=== PATIENT | female | born 1940 | race Caucasian/White ===

== ENCOUNTER 2022-03-13 14:16 | Inpatient (IN) ==
[2022-03-13 16:45] LABS: Basophils # 0.1 10*3/uL (0.0-0.2); Basophils % 0.8 % (0.0-0.8); Eosinophils # 0.2 10*3/uL (0.0-0.87); Eosinophils % 1.4 % (0.00-10.9); Hematocrit 41.6 VOL% (35.7-47.0); Hemoglobin 13.4 GM/DL (12.0-16.0); Immature Granulocytes % 0.5 %; Immature Granulocytes Absolute 0.06 #; Lymphocytes # 1.8 10*3/uL (1.4-4.0); Lymphocytes % 15.2 % (21.3-54.2); Mean Corpuscular HGB Conc 32.2 GM/DL (32-36); Mean Corpuscular Volume 92.7 FL (87-102); Monocytes # 1.1 10*3/uL (0.11-0.8); Monocytes % 9.2 % (1.7-12.7); Neutrophils % 72.9 % (38.7-73.9); Platelet Count 290 T/CUMM (130-400); Red Blood Count 4.49 MC/CUMM (3.8-5.5); Red Cell Distribution Width 14.6 % (9.3-17.3); White Blood Count 11.6 T/CUMM (4-12)
[2022-03-13 16:54] LABS: PT Patient Result 10.6 SECS (10.1-12.1)
[2022-03-13 17:02] LABS: Albumin 3.5 G/DL (3.4-5.0); Bilirubin,Total 1.6 MG/DL (0.20-1.00); Calcium 9.5 MG/DL (8.5-10.1); Osmolality,Calculated 291.8 MOS/KG (273-304); Potassium 3.4 MMOL/L (3.5-5.1)
[2022-03-13] MEDS ORDERED: DOCUSATE SODIUM 100 MG CAPSULE PO PRN (17:21)
[2022-03-13] MEDS ORDERED: ACETAMINOPHEN 325 MG TABLET PO PRN (17:21)
[2022-03-13] MEDS ORDERED: GLUCAGON 1 MG VIAL IM PRN (17:21)
[2022-03-13] MEDS ORDERED: ONDANSETRON 4 MG/2 ML VIAL IV PRN (17:21)
[2022-03-13] MEDS ORDERED: ALBUTEROL 2.5 MG/3 ML NEB RESP TX PRN (17:21)
[2022-03-13] MEDS ORDERED: MORPHINE 2 MG/1 ML SYRINGE IV PRN (17:21)
[2022-03-13] MEDS ORDERED: hydrALAZINE 20 MG/1 ML VIAL IV PRN (17:21)
[2022-03-13] MEDS ORDERED: DEXTROSE 10% 250 ML BAG IV PRN (17:30)
[2022-03-13 17:59] LABS: Hyaline Casts,Urine 1 /LPF (0-3); Mucus,Urine Occasional /LPF (Occasional); RBC,Urine 1 /HPF (0-4)
[2022-03-13 18:02] LABS: Bilirubin,Urine Negative (Negative); Blood, Urine Negative (Negative); Glucose,Urine (UA) Negative (Negative); Ketones,Urine Negative (Negative); Nitrite,Urine Negative (Negative); Protein,Urine Negative (Negative); Urine Appearance Clear (Clear); Urine Color Yellow (Yellow); Urine Urobilinogen 0.2 eU/dL (<2.0); Urine pH 5.5 (4.5-8.0)
[2022-03-13] MEDS: OLANZapine 5 MG TABLET PO SCH (18:26)
[2022-03-13] MEDS ORDERED: CITALOPRAM 20 MG TABLET PO SCH (19:00)
[2022-03-13] MEDS ORDERED: POTASSIUM CHLORIDE INJ 20 MEQ in LACTATED RINGERS 1,000 ML IV SCH (20:00)
[2022-03-13] MEDS: CITALOPRAM 20 MG TABLET PO SCH ×2 (20:01→20:42)
[2022-03-14 05:07] LABS: Basophils # 0.1 10*3/uL (0.0-0.2); Basophils % 1.2 % (0.0-0.8); Eosinophils # 0.4 10*3/uL (0.0-0.87); Eosinophils % 4.4 % (0.00-10.9); Hematocrit 35.1 VOL% (35.7-47.0); Hemoglobin 12.2 GM/DL (12.0-16.0); Immature Granulocytes % 0.6 %; Immature Granulocytes Absolute 0.05 #; Lymphocytes # 2.3 10*3/uL (1.4-4.0); Lymphocytes % 26.2 % (21.3-54.2); Mean Corpuscular HGB Conc 34.8 GM/DL (32-36); Mean Corpuscular Volume 93.1 FL (87-102); Mean Platelet Volume 10.2 FL (9.6-12.0); Monocytes # 0.9 10*3/uL (0.11-0.8); Monocytes % 10.3 % (1.7-12.7); Neutrophils % 57.3 % (38.7-73.9); Platelet Count 282 T/CUMM (130-400); Red Blood Count 3.77 MC/CUMM (3.8-5.5); Red Cell Distribution Width 14.8 % (9.3-17.3); White Blood Count 8.7 T/CUMM (4-12)
[2022-03-14 05:43] LABS: Calcium 9.5 MG/DL (8.5-10.1); Osmolality,Calculated 296.4 MOS/KG (273-304); Potassium 3.1 MMOL/L (3.5-5.1); Risk Ratio 3.18; Thyroid Stimulating Hormone 3.8 uIU/ml (0.358-3.74); VLDL Cholesterol 22.8 MG/DL
[2022-03-14] MEDS: POTASSIUM BICARB EFFERVESCENT 20 MEQ TAB.EFF PER TUBE PRN ×2 (06:15→08:48)
[2022-03-14] MEDS ORDERED: POTASSIUM CHLORIDE 20 MEQ TABLET PO ONE (08:18)
[2022-03-14] MEDS: buPROPion SR 100 MG TABLET PO SCH (08:48)
[2022-03-14] MEDS: DICYCLOMINE 20 MG TABLET PO SCH ×3 (08:48→16:50)
[2022-03-14] MEDS: PANTOPRAZOLE 40 MG TABLET PO SCH (08:48)
[2022-03-14] MEDS: NON-FORMULARY MEDICATION (Mirabegron [Myrbetriq] 25 mg Tablet Extended Release 24 Hr) PO SCH (08:51)
[2022-03-14] MEDS ORDERED: FUROSEMIDE 40 MG/4 ML VIAL IV ONE (09:58)
[2022-03-14] MEDS: POTASSIUM CHLORIDE INJ 40 MEQ in SODIUM CHLORIDE 0.45% 1,000 ML IV SCH (11:24)
[2022-03-14] MEDS: CHOLECALCIFEROL 5,000 UNIT TABLET PO SCH (11:24)
[2022-03-14] MEDS: POTASSIUM CHLORIDE 20 MEQ TABLET PO SCH (11:24)
[2022-03-14] MEDS: amLODIPine 5 MG TABLET PO SCH (11:25)
[2022-03-14] MEDS: ALBUTEROL 2.5 MG/3 ML NEB RESP TX SCH ×2 (13:59→19:58)
[2022-03-14] MEDS: OLANZapine 5 MG TABLET PO SCH (16:52)
[2022-03-14] MEDS: CITALOPRAM 20 MG TABLET PO SCH (20:08)
[2022-03-14] MEDS: MEMANTINE 5 MG TABLET PO SCH (20:08)
[2022-03-15] MEDS: ALBUTEROL 2.5 MG/3 ML NEB RESP TX SCH ×4 (00:15→15:12)
[2022-03-15] MEDS: POTASSIUM CHLORIDE INJ 40 MEQ in SODIUM CHLORIDE 0.45% 1,000 ML IV SCH (01:53)
[2022-03-15 05:29] LABS: Basophils # 0.1 10*3/uL (0.0-0.2); Basophils % 0.8 % (0.0-0.8); Eosinophils # 0.2 10*3/uL (0.0-0.87); Eosinophils % 1.8 % (0.00-10.9); Hemoglobin 12.5 GM/DL (12.0-16.0); Immature Granulocytes % 0.6 %; Immature Granulocytes Absolute 0.07 #; Lymphocytes # 2.6 10*3/uL (1.4-4.0); Lymphocytes % 22.8 % (21.3-54.2); Mean Corpuscular HGB Conc 32.1 GM/DL (32-36); Mean Corpuscular Volume 93.8 FL (87-102); Mean Platelet Volume 10.1 FL (9.6-12.0); Monocytes % 8.8 % (1.7-12.7); Neutrophils % 65.2 % (38.7-73.9); Platelet Count 299 T/CUMM (130-400); Red Blood Count 4.16 MC/CUMM (3.8-5.5); Red Cell Distribution Width 14.6 % (9.3-17.3); White Blood Count 11.5 T/CUMM (4-12)
[2022-03-15 05:58] LABS: Calcium 9.5 MG/DL (8.5-10.1); Osmolality,Calculated 286.1 MOS/KG (273-304); Potassium 4.6 MMOL/L (3.5-5.1)
[2022-03-15] MEDS ORDERED: SODIUM CHLORIDE 0.9% 1,000 ML IV SCH (07:30)
[2022-03-15] MEDS: PANTOPRAZOLE 40 MG TABLET PO SCH (09:16)
[2022-03-15] MEDS: MEMANTINE 5 MG TABLET PO SCH ×2 (09:16→20:11)
[2022-03-15] MEDS: DICYCLOMINE 20 MG TABLET PO SCH ×3 (09:16→18:03)
[2022-03-15] MEDS: buPROPion SR 100 MG TABLET PO SCH (09:16)
[2022-03-15] MEDS: NON-FORMULARY MEDICATION (Mirabegron [Myrbetriq] 25 mg Tablet Extended Release 24 Hr) PO SCH (09:24)
[2022-03-15] MEDS: amLODIPine 5 MG TABLET PO SCH (12:11)
[2022-03-15] MEDS: CHOLECALCIFEROL 5,000 UNIT TABLET PO SCH (12:11)
[2022-03-15] MEDS: SODIUM CHLORIDE 0.45% 1,000 ML IV SCH (17:15)
[2022-03-15] MEDS: OLANZapine 5 MG TABLET PO SCH (17:56)
[2022-03-15] MEDS: CITALOPRAM 20 MG TABLET PO SCH (20:11)
[2022-03-16 06:08] LABS: Basophils # 0.1 10*3/uL (0.0-0.2); Basophils % 0.7 % (0.0-0.8); Eosinophils # 0.4 10*3/uL (0.0-0.87); Eosinophils % 3.9 % (0.00-10.9); Hematocrit 41.6 VOL% (35.7-47.0); Hemoglobin 13.3 GM/DL (12.0-16.0); Immature Granulocytes % 0.6 %; Immature Granulocytes Absolute 0.05 #; Lymphocytes # 1.5 10*3/uL (1.4-4.0); Lymphocytes % 17.1 % (21.3-54.2); Mean Corpuscular Volume 93.9 FL (87-102); Mean Platelet Volume 9.8 FL (9.6-12.0); Monocytes # 0.7 10*3/uL (0.11-0.8); Monocytes % 7.5 % (1.7-12.7); Neutrophils % 70.2 % (38.7-73.9); Platelet Count 321 T/CUMM (130-400); Red Blood Count 4.43 MC/CUMM (3.8-5.5); Red Cell Distribution Width 14.3 % (9.3-17.3)
[2022-03-16 06:34] LABS: Calcium 10.1 MG/DL (8.5-10.1); Osmolality,Calculated 282.3 MOS/KG (273-304); Potassium 3.6 MMOL/L (3.5-5.1)
[2022-03-16] MEDS: NON-FORMULARY MEDICATION (Mirabegron [Myrbetriq] 25 mg Tablet Extended Release 24 Hr) PO SCH (08:38)
[2022-03-16] MEDS: PANTOPRAZOLE 40 MG TABLET PO SCH (09:28)
[2022-03-16] MEDS: buPROPion SR 100 MG TABLET PO SCH (09:28)
[2022-03-16] MEDS: MEMANTINE 5 MG TABLET PO SCH (09:28)
[2022-03-16] MEDS: SODIUM CHLORIDE 0.45% 1,000 ML IV SCH (10:15)
[2022-03-16] MEDS ORDERED: ZINC OXIDE PASTE 113 GM TUBE TOP PRN (10:45)
[2022-03-16] MEDS: HALOPERIDOL 5 MG/ML AMP IM PRN ×2 (10:45→17:17)
[2022-03-16] MEDS: ENOXAPARIN 40 MG/0.4 ML SYRINGE SUBCUT SCH (10:45)
[2022-03-16] MEDS: CHOLECALCIFEROL 5,000 UNIT TABLET PO SCH (12:27)
[2022-03-16] MEDS: POTASSIUM CHLORIDE 20 MEQ TABLET PO SCH (12:27)
[2022-03-16] MEDS: amLODIPine 5 MG TABLET PO SCH (12:50)
[2022-03-16 13:12] LABS: Bacteria,Urine Occasional /HPF (Few); Bilirubin,Urine Negative (Negative); Blood, Urine Negative (Negative); Glucose,Urine (UA) Negative (Negative); Ketones,Urine Negative (Negative); Mucus,Urine Occasional /LPF (Occasional); Nitrite,Urine Negative (Negative); Protein,Urine Negative (Negative); RBC,Urine 2 /HPF (0-4); Urine Appearance Clear (Clear); Urine Color Yellow (Yellow); Urine Specific Gravity 1.015 (1.001-1.035); Urine Urobilinogen 0.2 eU/dL (<2.0)
[2022-03-16 13:34] LABS: Barbiturates Screen,Urine Negative (Negative); Benzodiazepines Screen,Urine Negative (Negative); Cannabinoid Screen,Urine Negative (Negative); Opiate Screen,Urine Positive (Negative); Phencyclidine Screen,Urine Negative (Negative)
[2022-03-17 03:26] LABS: Basophils # 0.1 10*3/uL (0.0-0.2); Basophils % 0.9 % (0.0-0.8); Eosinophils # 0.3 10*3/uL (0.0-0.87); Eosinophils % 3.2 % (0.00-10.9); Hematocrit 40.2 VOL% (35.7-47.0); Hemoglobin 12.9 GM/DL (12.0-16.0); Immature Granulocytes % 0.5 %; Immature Granulocytes Absolute 0.05 #; Lymphocytes # 1.9 10*3/uL (1.4-4.0); Lymphocytes % 20.9 % (21.3-54.2); Mean Corpuscular HGB Conc 32.1 GM/DL (32-36); Mean Corpuscular Volume 92.4 FL (87-102); Mean Platelet Volume 9.5 FL (9.6-12.0); Monocytes # 0.9 10*3/uL (0.11-0.8); Monocytes % 10.1 % (1.7-12.7); Neutrophils % 64.4 % (38.7-73.9); Platelet Count 324 T/CUMM (130-400); Red Blood Count 4.35 MC/CUMM (3.8-5.5); Red Cell Distribution Width 14.2 % (9.3-17.3); White Blood Count 9.2 T/CUMM (4-12)
[2022-03-17 03:46] LABS: Calcium 9.2 MG/DL (8.5-10.1); Osmolality,Calculated 282.3 MOS/KG (273-304); Potassium 3.4 MMOL/L (3.5-5.1)
[2022-03-17] MEDS: PANTOPRAZOLE 40 MG TABLET PO SCH (10:56)
[2022-03-17] MEDS: NON-FORMULARY MEDICATION (Mirabegron [Myrbetriq] 25 mg Tablet Extended Release 24 Hr) PO SCH (10:56)
[2022-03-17] MEDS: ENOXAPARIN 40 MG/0.4 ML SYRINGE SUBCUT SCH (10:57)
[2022-03-17] MEDS: SODIUM CHLORIDE 0.45% 1,000 ML IV SCH ×2 (10:57→11:39)
[2022-03-17] MEDS: POTASSIUM CHLORIDE 20 MEQ TABLET PO SCH (11:40)
[2022-03-17] MEDS: POTASSIUM CHLORIDE RIDER 10 MEQ/100 ML PREMIX IV PRN ×3 (11:40→13:36)
[2022-03-17] MEDS: amLODIPine 5 MG TABLET PO SCH (11:41)
[2022-03-17] MEDS: CHOLECALCIFEROL 5,000 UNIT TABLET PO SCH (11:41)
[2022-03-18 05:43] LABS: Basophils # 0.1 10*3/uL (0.0-0.2); Basophils % 0.5 % (0.0-0.8); Eosinophils # 0.4 10*3/uL (0.0-0.87); Eosinophils % 3.5 % (0.00-10.9); Hematocrit 40.1 VOL% (35.7-47.0); Immature Granulocytes % 0.5 %; Immature Granulocytes Absolute 0.05 #; Lymphocytes # 1.9 10*3/uL (1.4-4.0); Lymphocytes % 18.5 % (21.3-54.2); Mean Corpuscular HGB Conc 32.4 GM/DL (32-36); Mean Corpuscular Volume 92.4 FL (87-102); Mean Platelet Volume 9.5 FL (9.6-12.0); Monocytes # 0.8 10*3/uL (0.11-0.8); Monocytes % 8.2 % (1.7-12.7); Neutrophils % 68.8 % (38.7-73.9); Platelet Count 352 T/CUMM (130-400); Red Blood Count 4.34 MC/CUMM (3.8-5.5); Red Cell Distribution Width 14.3 % (9.3-17.3); White Blood Count 10.1 T/CUMM (4-12)
[2022-03-18 06:02] LABS: Calcium 9.3 MG/DL (8.5-10.1); Osmolality,Calculated 277.5 MOS/KG (273-304); Potassium 3.5 MMOL/L (3.5-5.1)
[2022-03-18] MEDS: ENOXAPARIN 40 MG/0.4 ML SYRINGE SUBCUT SCH (09:18)
[2022-03-18] MEDS: PANTOPRAZOLE 40 MG TABLET PO SCH (09:18)
[2022-03-18] MEDS: NON-FORMULARY MEDICATION (Mirabegron [Myrbetriq] 25 mg Tablet Extended Release 24 Hr) PO SCH (09:20)
[2022-03-18] MEDS: amLODIPine 5 MG TABLET PO SCH (12:00)
[2022-03-18] MEDS: CHOLECALCIFEROL 5,000 UNIT TABLET PO SCH (12:01)
[2022-03-18] MEDS: POTASSIUM CHLORIDE 20 MEQ TABLET PO SCH (12:01)
[2022-03-18] MEDS: SODIUM CHLORIDE 0.45% 1,000 ML IV SCH ×2 (14:07)
[2022-03-18] MEDS ORDERED: TUBERCULIN SKIN TEST 0.1 ML SYRINGE INTRADERM ONE (15:27)
[2022-03-18] MEDS: HALOPERIDOL 5 MG/ML AMP IM PRN (18:25)
[2022-03-18] MEDS: CITALOPRAM 20 MG TABLET PO SCH ×2 (18:28→20:45)
[2022-03-19] MEDS: SODIUM CHLORIDE 0.45% 1,000 ML IV SCH (01:05)
[2022-03-19 05:14] LABS: Basophils # 0.1 10*3/uL (0.0-0.2); Basophils % 0.6 % (0.0-0.8); Eosinophils # 0.1 10*3/uL (0.0-0.87); Eosinophils % 1.1 % (0.00-10.9); Hematocrit 39.6 VOL% (35.7-47.0); Hemoglobin 12.9 GM/DL (12.0-16.0); Immature Granulocytes % 0.4 %; Immature Granulocytes Absolute 0.05 #; Lymphocytes # 1.8 10*3/uL (1.4-4.0); Lymphocytes % 15.2 % (21.3-54.2); Mean Corpuscular HGB Conc 32.6 GM/DL (32-36); Mean Corpuscular Volume 92.1 FL (87-102); Mean Platelet Volume 9.7 FL (9.6-12.0); Monocytes % 8.5 % (1.7-12.7); Neutrophils % 74.2 % (38.7-73.9); Platelet Count 384 T/CUMM (130-400); Red Cell Distribution Width 14.3 % (9.3-17.3); White Blood Count 11.7 T/CUMM (4-12)
[2022-03-19 05:31] LABS: Calcium 9.4 MG/DL (8.5-10.1); Osmolality,Calculated 277.5 MOS/KG (273-304); Potassium 3.3 MMOL/L (3.5-5.1)
[2022-03-19] MEDS: POTASSIUM CHLORIDE RIDER 10 MEQ/100 ML PREMIX IV PRN (05:34)
[2022-03-19] MEDS ORDERED: POTASSIUM CHLORIDE 20 MEQ TABLET PO ONE (07:25)
[2022-03-19] MEDS: ENOXAPARIN 40 MG/0.4 ML SYRINGE SUBCUT SCH (09:40)
[2022-03-19] MEDS: buPROPion SR 100 MG TABLET PO SCH (09:53)
[2022-03-19] MEDS: NON-FORMULARY MEDICATION (Mirabegron [Myrbetriq] 25 mg Tablet Extended Release 24 Hr) PO SCH (09:53)
[2022-03-19] MEDS: PANTOPRAZOLE 40 MG TABLET PO SCH (09:53)
[2022-03-19] MEDS: POTASSIUM CHLORIDE 20 MEQ TABLET PO SCH (11:34)
[2022-03-19] MEDS: amLODIPine 5 MG TABLET PO SCH (11:34)
[2022-03-19] MEDS: CHOLECALCIFEROL 5,000 UNIT TABLET PO SCH (11:34)
[2022-03-19] MEDS: COLCHICINE 0.6 MG CAPSULE PO SCH (13:21)
[2022-03-19] MEDS: CITALOPRAM 20 MG TABLET PO SCH (20:34)
[2022-03-20 05:50] LABS: Basophils # 0.1 10*3/uL (0.0-0.2); Basophils % 0.6 % (0.0-0.8); Eosinophils # 0.3 10*3/uL (0.0-0.87); Eosinophils % 2.8 % (0.00-10.9); Hemoglobin 12.2 GM/DL (12.0-16.0); Immature Granulocytes % 0.6 %; Immature Granulocytes Absolute 0.07 #; Lymphocytes % 18.2 % (21.3-54.2); Mean Corpuscular HGB Conc 32.1 GM/DL (32-36); Mean Corpuscular Volume 92.9 FL (87-102); Mean Platelet Volume 9.5 FL (9.6-12.0); Monocytes % 9.1 % (1.7-12.7); Neutrophils % 68.7 % (38.7-73.9); Platelet Count 373 T/CUMM (130-400); Red Blood Count 4.09 MC/CUMM (3.8-5.5); Red Cell Distribution Width 14.4 % (9.3-17.3); White Blood Count 10.9 T/CUMM (4-12)
[2022-03-20 06:25] LABS: Calcium 9.9 MG/DL (8.5-10.1); Osmolality,Calculated 278.5 MOS/KG (273-304); Potassium 3.9 MMOL/L (3.5-5.1)
[2022-03-20] MEDS: ENOXAPARIN 40 MG/0.4 ML SYRINGE SUBCUT SCH (09:29)
[2022-03-20] MEDS: PANTOPRAZOLE 40 MG TABLET PO SCH (09:30)
[2022-03-20] MEDS: NON-FORMULARY MEDICATION (Mirabegron [Myrbetriq] 25 mg Tablet Extended Release 24 Hr) PO SCH (09:31)
[2022-03-20] MEDS: SODIUM CHLORIDE 0.45% 1,000 ML IV SCH ×2 (09:34→09:35)
[2022-03-20] MEDS: CHOLECALCIFEROL 5,000 UNIT TABLET PO SCH (11:40)
[2022-03-20] MEDS: COLCHICINE 0.6 MG CAPSULE PO SCH (11:40)
[2022-03-20] MEDS: POTASSIUM CHLORIDE 20 MEQ TABLET PO SCH (11:40)
[2022-03-20] MEDS: amLODIPine 5 MG TABLET PO SCH (11:40)
[2022-03-20] MEDS: CITALOPRAM 20 MG TABLET PO SCH (20:36)
[2022-03-21 05:33] LABS: Basophils # 0.1 10*3/uL (0.0-0.2); Basophils % 0.8 % (0.0-0.8); Eosinophils # 0.4 10*3/uL (0.0-0.87); Hematocrit 37.6 VOL% (35.7-47.0); Hemoglobin 11.9 GM/DL (12.0-16.0); Immature Granulocytes % 0.7 %; Immature Granulocytes Absolute 0.07 #; Lymphocytes # 2.8 10*3/uL (1.4-4.0); Lymphocytes % 26.9 % (21.3-54.2); Mean Corpuscular HGB Conc 31.6 GM/DL (32-36); Mean Platelet Volume 9.6 FL (9.6-12.0); Monocytes # 0.9 10*3/uL (0.11-0.8); Monocytes % 8.8 % (1.7-12.7); Neutrophils % 58.8 % (38.7-73.9); Platelet Count 436 T/CUMM (130-400); Red Cell Distribution Width 14.4 % (9.3-17.3); White Blood Count 10.3 T/CUMM (4-12)
[2022-03-21 05:41] LABS: Calcium 9.5 MG/DL (8.5-10.1); Osmolality,Calculated 279.5 MOS/KG (273-304); Potassium 3.7 MMOL/L (3.5-5.1)
[2022-03-21] MEDS: PANTOPRAZOLE 40 MG TABLET PO SCH (09:16)
[2022-03-21] MEDS: ENOXAPARIN 40 MG/0.4 ML SYRINGE SUBCUT SCH (09:17)
[2022-03-21] MEDS: NON-FORMULARY MEDICATION (Mirabegron [Myrbetriq] 25 mg Tablet Extended Release 24 Hr) PO SCH (10:32)
[2022-03-21] MEDS: POTASSIUM CHLORIDE 20 MEQ TABLET PO SCH (12:35)
[2022-03-21] MEDS: amLODIPine 5 MG TABLET PO SCH (12:35)
[2022-03-21] MEDS: CHOLECALCIFEROL 5,000 UNIT TABLET PO SCH (12:35)
[2022-03-21] MEDS: COLCHICINE 0.6 MG CAPSULE PO SCH (12:35)
[2022-03-21] MEDS: CITALOPRAM 20 MG TABLET PO SCH (21:17)
[2022-03-22 05:06] LABS: Basophils # 0.1 10*3/uL (0.0-0.2); Basophils % 0.9 % (0.0-0.8); Eosinophils # 0.4 10*3/uL (0.0-0.87); Eosinophils % 4.3 % (0.00-10.9); Hematocrit 36.1 VOL% (35.7-47.0); Hemoglobin 11.5 GM/DL (12.0-16.0); Immature Granulocytes % 0.8 %; Immature Granulocytes Absolute 0.07 #; Lymphocytes # 2.6 10*3/uL (1.4-4.0); Lymphocytes % 28.3 % (21.3-54.2); Mean Corpuscular HGB Conc 31.9 GM/DL (32-36); Mean Corpuscular Volume 93.5 FL (87-102); Mean Platelet Volume 9.3 FL (9.6-12.0); Monocytes # 0.8 10*3/uL (0.11-0.8); Monocytes % 8.8 % (1.7-12.7); Neutrophils % 56.9 % (38.7-73.9); Platelet Count 448 T/CUMM (130-400); Red Blood Count 3.86 MC/CUMM (3.8-5.5); Red Cell Distribution Width 14.3 % (9.3-17.3); White Blood Count 9.1 T/CUMM (4-12)
[2022-03-22 05:32] LABS: Calcium 9.2 MG/DL (8.5-10.1); Osmolality,Calculated 282.3 MOS/KG (273-304); Potassium 3.8 MMOL/L (3.5-5.1)
[2022-03-22] MEDS: PANTOPRAZOLE 40 MG TABLET PO SCH (09:46)
[2022-03-22] MEDS: NON-FORMULARY MEDICATION (Mirabegron [Myrbetriq] 25 mg Tablet Extended Release 24 Hr) PO SCH (09:47)
[2022-03-22] MEDS: ENOXAPARIN 40 MG/0.4 ML SYRINGE SUBCUT SCH (09:47)
[2022-03-22] MEDS: amLODIPine 5 MG TABLET PO SCH (11:39)
[2022-03-22] MEDS: CHOLECALCIFEROL 5,000 UNIT TABLET PO SCH (11:39)
[2022-03-22] MEDS: COLCHICINE 0.6 MG CAPSULE PO SCH (11:39)
[2022-03-22] MEDS: POTASSIUM CHLORIDE 20 MEQ TABLET PO SCH (11:39)
[2022-03-22 12:55] VITALS: BP 123/66
== END 2022-03-22 12:19 | disposition swing bed (61) | DRG 536 ==
LOC: EDBD → EDUNIT# → N.ED 14:16 → N.EDINP 17:30 → SUATTDRO 17:30 → N.3E 19:10
PROVIDERS: ADMIT Internal Medicine; ATTEND Internal Medicine